=== PATIENT | female | born 1985 | race Two or more races ===

== ENCOUNTER → 2019-03-04 | Outpatient (CLI) | payer OTHER ==
[~2019-03-04] MED LIST: DOCUSATE SODIU100 MG PO
== END | disposition home or self-care (01) ==
LOC: PRENATAL 13:30
DX: O35.3XX0 Maternal care for (suspected) damage to fetus from viral disease in mother, not applicable or unspecified (principal)

== ENCOUNTER 2019-06-30 06:32 | Inpatient (IN) | payer OTHER ==
[~2019-06-30] VITALS: Ht 165.1 cm; Wt 80.7 kg
[2019-06-30] MEDS ORDERED: PRENATAL TABLE1 EAC1 PO (07:15)
== END 2019-07-02 14:22 | disposition home or self-care (01) | DRG 807 ==
LOC: LDR 06:32 → OB/GYN 06:32
PROVIDERS: ADMIT Obstetrics & Gynecology
PROC: 10E0XZZ Delivery of Products of Conception, External Approach (ICD-10-PCS; principal; 2019-06-30)
PROC: 0KQM0ZZ Repair Perineum Muscle, Open Approach (ICD-10-PCS; 2019-06-30)
PROC: 10907ZC Drainage of Amniotic Fluid, Therapeutic from Products of Conception, Via Natural or Artificial Opening (ICD-10-PCS; 2019-06-30)
PROC: 3E033VJ Introduction of Other Hormone into Peripheral Vein, Percutaneous Approach (ICD-10-PCS; 2019-06-30)
PROC: 4A1HXFZ Monitoring of Products of Conception, Cardiac Rhythm, External Approach (ICD-10-PCS; 2019-06-30)
DX: O36.63X0 Maternal care for excessive fetal growth, third trimester, not applicable or unspecified (principal); Z37.0 Single live birth; O70.1 Second degree perineal laceration during delivery; Z3A.38 38 weeks gestation of pregnancy